=== PATIENT | male | born 1965 | race Caucasian/White ===

== ENCOUNTER 2018-04-22 20:07 | Emergency (ER) | payer MEDICAID, OTHER ==
[~2018-04-22] VITALS: Ht 182.9 cm; Wt 95.2 kg
[~2018-04-22 20:07] MED LIST: HYDR-3237 PO
[2018-04-22] MEDS ORDERED: SODIUM CHLORIDE FLUSH 10ML SYR IVF ONE (20:30)
[2018-04-22] MEDS ORDERED: ONDANSETRON 2MG/ML, 2ML IVPush ONE (20:30)
[2018-04-22] MEDS ORDERED: MORPHINE SULFATE 4 MG/ML, 1ML IVPush PRN (20:30)
[2018-04-22] MEDS ORDERED: MORPHINE SULFATE 4 MG/ML, 1ML ONE (20:45)
--- NOTE | 2018-04-22 20:50 | NUR ---
PT WITH IV STARTED AND PT MEDICATED ORDERED. PT ON MONITOR AND AWAITING CT AND X-RAY TESTS
--- NOTE | 2018-04-22 21:12 | NUR ---
PT BACK FROM X-RAY AND CT SCAN AWAITING RESULTS.
[2018-04-22 21:25] VITALS: BP 112/67
== END 2018-04-22 22:44 | disposition home or self-care (01) ==
LOC: ED 22:38
DX: S32.019A Unspecified fracture of first lumbar vertebra, initial encounter for closed fracture (principal); S82.64XA Nondisplaced fracture of lateral malleolus of right fibula, initial encounter for closed fracture; S16.1XXA Strain of muscle, fascia and tendon at neck level, initial encounter; W00.0XXA Fall on same level due to ice and snow, initial encounter; Y93.55 Activity, bike riding; Y92.482 Bike path as the place of occurrence of the external cause; Y99.8 Other external cause status
CPT/HCPCS: 70450; 71250; 72125; 72131; 96374

== ENCOUNTER 2018-06-09 16:49 | Emergency (ER) | payer MEDICAID ==
[~2018-06-09] VITALS: Ht 182.9 cm; Wt 97.0 kg
[2018-06-09] MEDS ORDERED: HYDROmorphone 1 MG/ML, 1ML VIAL ONE (17:24)
[2018-06-09] MEDS ORDERED: HYDROmorphone 2 MG/ML, 1ML IM ONE (17:30)
[2018-06-09] MEDS ORDERED: DIAZEPAM 5 MG TABLET PO ONE (17:30)
[2018-06-09] MEDS ORDERED: DIPHTHERIA-TETANUS ADULT 0.5ML IM-VACC ONE (17:30)
[2018-06-09] MEDS ORDERED: DIAZEPAM 5 MG TABLET ONE (17:31)
--- NOTE | 2018-06-09 17:40 | NUR ---
DOG BITE LEFT HAND. PT ANXIOUS AND IN PAIN. MEDICATED PER ORDERS
[2018-06-09] MEDS ORDERED: LIDOCAINE-MPF 1%, 5ML ONE ×2 (18:08→20:03)
[2018-06-09] MEDS ORDERED: ONDANSETRON ODT 4 MG ONE (18:18)
[2018-06-09] MEDS ORDERED: ONDANSETRON ODT 4 MG PO ONE (18:30)
--- NOTE | 2018-06-09 18:43 | NUR ---
AFTER WOUND CLEANED BY MD ISAIAH EXAMINING WOUND. [facility] TO BE PAGED
--- NOTE | 2018-06-09 18:44 | NUR ---
CALLED STEPHANIE/RAFAEL FOR CONSULT. PER ANSWERING SERVICE, DR BROWN HAS STATED HE NO LONGER TAKES CALLS FOR ER. CALL TO [facility] WAS MADE INSTEAD
[2018-06-09] MEDS ORDERED: CEFAZOLIN PMX 1GM/50ML 50 ML ONE (18:54)
[2018-06-09 18:57] LABS: BASOPHILS # (AUTO) 0.02 x10^3/uL (0-0.1); BASOPHILS % (AUTO) 0 % (0-1); EOSINOPHILS # (AUTO) 0.12 x10^3/uL (0-0.4); EOSINOPHILS % (AUTO) 2 % (1-7); LYMPHOCYTES # (AUTO) 1.55 x10^3/uL (1-3.4); LYMPHOCYTES % (AUTO) 21 % (22-44); MD NO; MEAN CORPUSCULAR HEMOGLOBIN 29.6 pg (27.5-34.5); MEAN CORPUSCULAR VOLUME 87.2 fL (81-97); MEAN PLATELET VOLUME 7.8 fL (7.4-10.4); MONOCYTES # (AUTO) 0.38 x10^3/uL (0.2-0.8); MONOCYTES % (AUTO) 5 % (2-9); NEUTROPHILS % (AUTO) 72 % (42-75); PLATELET COUNT 239 x10^3/uL (130-400); RED BLOOD COUNT 4.93 x10^6/uL (4.38-5.82); RED CELL DISTRIBUTION WIDTH 13.8 % (9.4-14.8)
[2018-06-09] MEDS ORDERED: SODIUM CHLORIDE FLUSH 10ML SYR IVF ONE (19:00)
[2018-06-09] MEDS ORDERED: CEFAZOLIN 1,000 MG IV ONE (19:00)
[2018-06-09 19:08] LABS: ALANINE AMINOTRANSFERASE 48 U/L (12-78); ANION GAP 5 mmol/L (5-15); CALCIUM 9.1 mg/dL (8.5-10.1); CHLORIDE 108 mmol/L (98-107); CREATININE 1.07 mg/dL (0.7-1.3)
[2018-06-09 19:10] LABS: ALKALINE PHOSPHATASE 76 U/L (45-117); BILIRUBIN,TOTAL 0.3 mg/dL (0.2-1.0); TOTAL PROTEIN 7.3 g/dL (6.4-8.2)
[2018-06-09] MEDS ORDERED: MORPHINE SULFATE 4 MG/ML, 1ML ONE ×2 (19:12→20:45)
[2018-06-09] MEDS ORDERED: MORPHINE SULFATE 4 MG/ML, 1ML IVPush PRN (19:30)
--- NOTE | 2018-06-09 19:39 | NUR ---
REMEDICATED FOR RETURNING PAIN LEFT HAND
[2018-06-09 20:58] VITALS: BP 132/83
--- NOTE | 2018-06-09 20:58 | NUR ---
STUDENT PA SUTURE DOG BITE WOUND. REMEDICATED FOR PAIN AND VS UPDATED
[2018-06-09] MEDS ORDERED: BACITRACIN ZINC OINT 500U/GM, 0.9 GM ONE (21:16)
== END 2018-06-09 22:03 | disposition home or self-care (01) ==
LOC: ED 21:45
DX: S61.412A Laceration without foreign body of left hand, initial encounter (principal); S61.432A Puncture wound without foreign body of left hand, initial encounter; F17.200 Nicotine dependence, unspecified, uncomplicated; W54.0XXA Bitten by dog, initial encounter; Y93.89 Activity, other specified; Y92.89 Other specified places as the place of occurrence of the external cause; Y99.8 Other external cause status
CPT/HCPCS: 13132; 36415; 73130; 80053; 85025; 90471; 90714; 96372; 96374; 96375; 99285; J0690; J1170

== ENCOUNTER 2020-09-08 17:45 | Emergency (ER) | payer MEDICAID ==
[~2020-09-08] VITALS: Ht 182.9 cm; Wt 95.0 kg
[2020-09-08] MEDS ORDERED: KETOROLAC 30 MG/1 ML ONE ×2 (17:57→22:20)
[2020-09-08] MEDS ORDERED: KETOROLAC 30 MG/1 ML IVPush ONE ×2 (18:00→22:30)
[2020-09-08] MEDS ORDERED: HYDROmorphone 1 MG/ML, 1ML INJ IV ONE (18:00)
[2020-09-08] MEDS ORDERED: KETAMINE 10 MG/ML, 20ML IV ONE (18:00)
[2020-09-08] MEDS ORDERED: ONDANSETRON 2MG/ML, 2ML IVPush ONE (18:00)
[2020-09-08] MEDS ORDERED: KETAMINE 10 MG/ML, 20ML ONE (18:02)
--- NOTE | 2020-09-08 18:09 | NUR ---
ASSUMED CARE OF PATIENT. PATIENT REPORTS 10/10 RIGHT LOWER ABD PAIN THAT GOES TO GROIN. PT MOVING AROUND [place] AND YELLING. DR SWIFT HAS SEEN PATIENT. 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 VS STABLE. FAMILY AT BEDSIDE WILL CONITNUE TO MONITOR.
--- NOTE | 2020-09-08 18:39 | NUR ---
PT NOW CALM. VS STABLE. PT NOW REPORTS 2/10 PAIN. CALL LIIGHT IN PLACE. NO ACUTE DISTRESS NOTED. WILL CONTINUE TO MONITOR. LAB IN ROOM
[2020-09-08 18:53] LABS: BASOPHILS % (AUTO) 1 % (0-1); EOSINOPHILS % (AUTO) 2 % (1-7); LYMPHOCYTES % (AUTO) 24 % (22-44); MEAN CORPUSCULAR HEMOGLOBIN 29.8 pg (27.5-34.5); MEAN PLATELET VOLUME 7.9 fL (7.4-10.4); MONOCYTES % (AUTO) 6 % (2-9); NEUTROPHILS % (AUTO) 66 % (42-75); PLATELET COUNT 230 x10^3/uL (130-400); RED BLOOD COUNT 4.74 x10^6/uL (4.38-5.82); RED CELL DISTRIBUTION WIDTH 13.8 % (9.4-14.8)
--- NOTE | 2020-09-08 18:57 | NUR ---
REPORT GIVEN TO AMY BOLAND
[2020-09-08 19:08] LABS: ALANINE AMINOTRANSFERASE 42 U/L (12-78); ALBUMIN 3.6 g/dL (3.4-5.0); ANION GAP 4 mmol/L (5-15); CALCIUM 8.8 mg/dL (8.5-10.1); CHLORIDE 110 mmol/L (98-107); CREATININE 1.14 mg/dL (0.7-1.3)
--- NOTE | 2020-09-08 19:08 | NUR ---
pt aware urine sample is needed. pt given urinal. pt going to CT at this time.
[2020-09-08 19:11] LABS: ALKALINE PHOSPHATASE 67 U/L (45-117); BILIRUBIN,TOTAL 0.3 mg/dL (0.2-1.0); TOTAL PROTEIN 7.3 g/dL (6.4-8.2)
[2020-09-08] MEDS ORDERED: ONDANSETRON 2MG/ML, 2ML ONE ×2 (19:34→20:44)
[2020-09-08] MEDS ORDERED: HYDROmorphone 1 MG/ML, 1ML INJ ONE ×3 (19:34→23:53)
--- NOTE | 2020-09-08 19:35 | NUR ---
PT BACK FROM CT. PT RESTING CALMLY IN [facility]. WILL CONTINUE TO MONITOR.
--- NOTE | 2020-09-08 19:57 | NUR ---
PT NEPHEW CALLED TO CHECK ON PT. ASKED TO BE CALLED BACK IF PT NEED RIDE HOME GARCÍA CANAS - [phone]
--- NOTE | 2020-09-08 20:11 | NUR ---
PT RESTING CALMLY IN BED AT THIS TIME, WITH EYES CLOSED. NO STATED NEEDS CURRENTLY. WILL CONTINUE TO MONITOR.
--- NOTE | 2020-09-08 21:01 | NUR ---
PT STILL HASNOT PRODUCED A URINE SAMPLE. PT HAS BEEN ASKED MULTIPLE TIMES. PT REFUSING STRAIGHT CATH. PT STATED HE IS UNABLE TO VOID AT THIS TIME DUE TO PAIN. PT MEDICATED FOR PAIN PER EMR. WILL CONTINUE TO MONITOR.
[2020-09-08] MEDS ORDERED: SODIUM CHLORIDE 0.9%, 500ML IVBOLUS ONE (21:30)
--- NOTE | 2020-09-08 21:32 | NUR ---
PT STILL UNABLE TO PRODUCE A URINE SAMPLE. ERP AWARE, ORDERS IN TO GIVE IV FLUIDS. BLADDER SCAN SHOWS 116CC. ORDERED FLUIDS INFUSING
--- NOTE | 2020-09-08 21:50 | NUR ---
PT REPOSITIONED IN BED. STILL NO URINE. FLUID BAG ALMOST EMPTY. PT STATED HE WILL TRY TO GET UP AGAIN TO VOID.
--- NOTE | 2020-09-08 22:10 | NUR ---
STILL NO URINE. PT DRINKING MULTIPLE CUPS OF WATER WITH HIS NEPHEW'S ASSIST. WILL CONTINUE TO MONITOR. PT CONTINUES TO REFUSE STRAIGHT CATH, STATED, "IT JUST HURTS TOO MUCH, I WON'T DO IT".
[2020-09-08] MEDS ORDERED: FAMOTIDINE 20 MG/2 ML ONE (22:20)
[2020-09-08] MEDS ORDERED: FAMOTIDINE 20 MG/2 ML IVPush ONE (22:30)
--- NOTE | 2020-09-08 22:37 | NUR ---
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
--- NOTE | 2020-09-08 23:04 | NUR ---
STILL NO URINE SAMPLE PRODUCED AT THIS TIME. WILL INFORM ERP
--- NOTE | 2020-09-08 23:36 | NUR ---
PT REMAINS UNABLE TO VOID. BLADDER SCAN ONLY 150CC. ERP AWARE, WILL SPEAK WITH PT.
[2020-09-09] MEDS ORDERED: HYDROmorphone 1 MG/ML, 1ML INJ IV ONE
--- NOTE | 2020-09-09 | NUR ---
PT REPOSITIONED IN BED FOR COMFORT. PT MEDICATED FOR PAIN PER PT REQUEST TO ERP. ERP HAS SPOKEN WITH PT ABOUT STAYING TO PROVIDE A URINE SAMPLE. PT CONTINUING TO ATTEMPT TO VOID. PT STATED HE HAS TRIED STANDING FOR 5 MINUTES WHICH DID NOT HELP. WILL CONTINUE TO MONITOR.
--- NOTE | 2020-09-09 00:32 | NUR ---
PT SON HAS RETURNED AND BROUGHT PT SODA. PT HOPING HE CAN VOID WITH THE CAFFIENE FROM THE SODA.
--- NOTE | 2020-09-09 01:03 | NUR ---
REPORT TO VIOLETTA REYES
--- NOTE | 2020-09-09 01:10 | NUR ---
REPORT FROM AMY SHIPLEY
[2020-09-09 02:03] VITALS: BP 115/77
--- NOTE | 2020-09-09 02:11 | NUR ---
PT STILL UNABLE TO PROVIDE URINE SAMPLE. PT STATES HE WANTS TO LEAVE. AGREED TO LEAVE AMA. PT GIVEN INFORMATION ON RISKS OF LEAVING AMA AND HE VERBALIZED UNDERSTANDING. STILL WANTS TO LEAVE AMA. DR LYN NOTIFIED AND OK WITH PLAN FOR AMA. VITALS REMAIN STABLE. PT IS A+OX4 AND IN NO ACUTE DISTRESS. DENYING PAIN. WAITING ON SON TO COME PICK HIM UP. EDUCATED HE CAN COME BACK IF HE FEELS WORSE. AMA PAPERWORK SIGNED AND ADDED TO PAPER CHART. PT PROVIDED A COPY OF PAPERWORK.
== END 2020-09-09 02:51 | disposition left against medical advice (07) ==
LOC: ED 17:53
DX: N13.2 Hydronephrosis with renal and ureteral calculous obstruction (principal); F17.210 Nicotine dependence, cigarettes, uncomplicated
CPT/HCPCS: 36415; 74176; 80053; 83690; 85025; 96361; 96374; 96375; 96376; 99285; J1170; J1885; J2405; J7040; 96365